=== PATIENT | female | born 1950 | race Caucasian/White ===

== ENCOUNTER 2024-07-07 14:25 | Outpatient (CLI) | payer BC, MEDICAID ==
[~2024-07-07 14:25] MED LIST: AMLO2.5T2 PO; ASPI-845 PO; CLON0.1T PO; ESCI-8 PO; HYDR-4353 PO; HYDR50TA4 PO; LEVO100T9 PO; LISI40TA13 PO; METF500T PO; [UNRECOGNIZED DRUG - CODE] PO
== END 2024-07-07 23:59 | disposition home or self-care (01) ==
LOC: RAD 14:25
PROVIDERS: ATTEND Physician Assistant Surgical
DX: M25.562 Pain in left knee (principal); Z96.652 Presence of left artificial knee joint
CPT/HCPCS: 73700